=== PATIENT | female | born 1935 | race Caucasian/White ===

== ENCOUNTER → 2017-04-13 | Outpatient (CLI) | payer OTHER ==
[~2017-04-13] MED LIST: CENTRUM PO; COREG; LASIX; LISINOPRIL; MICRO-K; ZOCOR
--- NOTE | ~2017-04-13 | CT55 ---
[facility] A Service of [facility] RADIOLOGY TEXT RESULTS PATIENT: TRUONG LYNCH [facility] UNIT #: [id number] AGE: [address]: Dario Harman MD SEX: F ORDER DR: [id number] [facility] [address] [place], [place] [address] [id number] O MR#: [id number] Acc #: [id number] NAME: TRUONG LYNCH : 1935 SEX: F STUDY DATE/TIME: 04/13/2017 13:51 UNIT: [facility] ROOM: STUDY DESCRIPTION: CT Chest W Con Attending Physician: Dario Harman M.D. Referring Physician: Dario Harman M.D. Ordering Physician: Dario Harman M.D. Primary Care Physician: Aramis Perry M.D. MEDICAL IMAGING REPORT This report is preliminary unless electronic signature is present EXAM CT of the chest with contrast. INDICATIONS Anal cancer. This exam is requested to evaluate for metastatic disease. Patient also reports intermittent shortness of breath for [address] images were obtained from the thoracic inlet through the dome of the diaphragm following the administration of intravenous contrast material. This CT exam was performed with one or more of the following radiation dose reduction techniques: Automatic exposure control, adjustment of mA and/or kV according to patient size, and iterative reconstruction. FINDINGS Comparison made to prior exam from April 14, 2016. Advanced background emphysematous changes are noted. Patient has biapical fibrosis. Tree-in-bud infiltrates are identified within both lungs, particularly in a basilar distribution; this is most pronounced within the lingula, although I think has probably not significantly changed when compared to the prior study. Cystic changes seen within the left lower lobe. Again, I do not really think this has significantly changed. There is, however, an area of nodularity at the right lung apex measuring up to 1.5 x 1.3 cm, which is new when compared to the prior examination. Potentially, it may reflect some evolving fibrotic change; however, new mass lesion cannot be excluded. Further evaluation with PET is recommended. The thyroid gland, trachea and esophagus appear unremarkable. There is no pleural or pericardial effusion. Mediastinal lymph nodes do not appear pathologically enlarged. Thoracic aorta measures within normal size limits. [facility] A Service of [facility] RADIOLOGY TEXT RESULTS PATIENT: TRUONG LYNCH LOCATION: [facility] : 33 UNIT #: [id number] AGE: [address]: Dario Harman MD SEX: F ORDER DR: Images through the upper abdomen demonstrate some intrahepatic biliary dilatation and there is also extrahepatic biliary dilatation as well. This patient's pancreatic duct measures up to about 9 mm in size. Similar findings were present in March 2016, but this area is incompletely evaluated on the current examination. In addition, this patient has left-sided hydronephrosis, which is new when compared to the prior examination. Further evaluation with dedicated imaging of the abdomen and pelvis is recommended. Extensive atherosclerotic involvement of the abdominal aorta is noted. Patient does have some moderate narrowing seen at the origin of the superior mesenteric artery with probably some additional significant narrowing seen at the origin of the celiac axis. This would be better assessed with dedicated CT angiography. Review of bony windows does not demonstrate any aggressive osseous abnormalities. IMPRESSION 1. 1.5 x 1.3 cm nodule has developed at the right lung apex. This may reflect some additional fibrotic change but given background emphysematous changes, the possibility that this reflects malignancy cannot be excluded. I would suggest further evaluation with PET. Remainder of biapical scarring is probably stable. Patient has tree-in-bud infiltrates throughout both lungs, which again I do not think are significantly changed. There is some chronic scarring noted at the left lung base. 2. Biliary dilatation as well as pancreatic ductal dilatation. Similar findings were present in March 2016, etiology is uncertain on the basis of this study. It could be better evaluated with dedicated imaging of the abdomen and pelvis. This would also allow for assessment of left-sided hydronephrosis, which is new when compared to the prior study. 3. Extensive atherosclerotic involvement of the aorta as noted above. Dictated by... Kaylene Beard M.D. THIS IS AN ELECTRONICALLY VERIFIED REPORT Kaylene Beard M.D. at 04/14/2017 5:01 PM AFF/psc TD: 04/14/2017 00:27 JOB #: [id number] MEDICAL IMAGING REPORT Page 1 of 1 COPY
[2017-04-13 16:00] LABS: POC - CREATININE 0.65 mg/dL (0.44-1.03); POC - GFR >60.0 mL/min (>60)
== END | disposition home or self-care (01) ==
LOC: CCAT 12:55
PROVIDERS: Internal Medicine Medical Oncology
DX: C21.0 Malignant neoplasm of anus, unspecified (principal); R91.1 Solitary pulmonary nodule; I70.0 Atherosclerosis of aorta; K86.89 Other specified diseases of pancreas
CPT/HCPCS: 71260; 82565; Q9967